=== PATIENT | male | born 1965 | race Caucasian/White ===

== ENCOUNTER 2016-06-04 18:46 | Inpatient (IN) | payer MEDICAID, MEDICARE ==
[~2016-06-04] VITALS: Ht 175.3 cm; Wt 69.9 kg
[2016-06-04 18:46] VITALS: BP 95/57; PULSE 91; RESP 22; TEMP 98.7; O2SAT 100
--- NOTE | 2016-06-04 18:46 | NUR ---
BROUGHT IN BY KATHARINE DURÁN, PLACED IN BED #1 AND TRIAGED. REPORT GIVEN TO KRISTINE
--- NOTE | 2016-06-04 19:07 | NUR ---
Introduced self, updated V/S, denies pain, presents with dried blood around mouth, here for vomting blood and blood in stool today .
[2016-06-04] MEDS ORDERED: FOLI-43 PO (19:11)
[2016-06-04] MEDS ORDERED: FURO40TA5 PO (19:11)
[2016-06-04] MEDS ORDERED: SPIR50TA26 PO (19:11)
[2016-06-04] MEDS ORDERED: LACT10SO66 PO (19:11)
[2016-06-04] MEDS ORDERED: RIFA550T5 PO (19:11)
[2016-06-04] MEDS ORDERED: ESOM40CA53 PO (19:11)
[2016-06-04] MEDS ORDERED: NS 1000 ML BAG IV ONE (19:15)
[2016-06-04] MEDS ORDERED: PANTOPRAZOLE SODIUM 80 MG in NS 100 ML IV ONE (19:15)
[2016-06-04] MEDS ORDERED: OCTREOTIDE ACETATE 100 MCG/ML AMP IVP ONE (19:15)
[2016-06-04] MEDS ORDERED: cefTRIAXone 1 GM in D5W 50 ML IV ONE (19:15)
[2016-06-04] MEDS ORDERED: PROCHLORPERAZINE EDISYLATE 10 MG/2 ML VIAL IVP ONE (19:15)
[2016-06-04] MEDS ORDERED: OCTREOTIDE ACETATE 50 MCG/ML AMP IVP ONE (19:15)
[2016-06-04] MEDS ORDERED: PANTOPRAZOLE SODIUM 40 MG/VIAL (PROTONIX) ONE (19:29)
[2016-06-04] MEDS ORDERED: cefTRIAXone 1 GM VIAL ONE ×2 (19:29→19:52)
[2016-06-04 19:39] LABS: BASOPHILS % (AUTO) 0.3 % (0.0-2.0); EOSINOPHILS # (AUTO) 0.1 K/uL (0.0-0.4); EOSINOPHILS % (AUTO) 0.5 % (0.0-4.0); HEMATOCRIT 24.2 % (36-54); HEMOGLOBIN 8.1 g/dL (14.0-18.0); LYMPHOCYTES % (AUTO) 9.2 % (20.5-51.5); MEAN CORPUSCULAR HEMOGLOBIN 31 pg (27-31); MEAN CORPUSCULAR HGB CONC 34 % (32-36); MEAN CORPUSCULAR VOLUME 93 fL (79.0-98.0); MONOCYTES # (AUTO) 0.5 K/uL (0.0-1.0); MONOCYTES % (AUTO) 4.8 % (1.7-9.3); NEUTROPHILS # (AUTO) 8.9 K/uL (1.8-7.7); NEUTROPHILS % (AUTO) 85.2 % (40.0-70.0); PLATELET COUNT (AUTO) 92 K/uL (130-430); RED BLOOD CELL COUNT(AUTO) 2.59 MIL/uL (4.2-6.2); RED CELL DISTRIBUTION WIDTH 16.4 % (9.0-15.0); WHITE BLOOD COUNT (AUTO) 10.5 K/uL (4.8-10.8)
[2016-06-04] MEDS ORDERED: NOREPINEPHRINE BITARTRATE 4 MG in NS 250 ML IV ONE (19:45)
[2016-06-04] MEDS ORDERED: NACL 0.9% 1,000 ML IV ONE ×4 (19:45→21:30)
[2016-06-04] MEDS ORDERED: NOREPINEPHRINE 4 MG/4 ML VIAL IV ONE (19:45)
[2016-06-04 19:46] LABS: CALCIUM 8.4 mg/dL (8.4-11.0); CREATININE 1.06 mg/dL (0.55-1.30); POTASSIUM 4.7 mmol/L (3.5-5.1)
--- NOTE | 2016-06-04 19:50 | NUR ---
MD Blair and MD Ross at bedside starting EJ, MD ross was able to get EJ to the Left Neck Area. Good blood return and flushing well. Will continue to monitor patient.
[2016-06-04 19:51] LABS: ALBUMIN 2.3 g/dL (3.4-4.8); TOTAL BILIRUBIN 4.7 mg/dL (0.0-1.0); TOTAL PROTEIN, SERUM 5.4 g/dL (6.4-8.3)
--- NOTE | 2016-06-04 19:51 | NUR ---
Asa mcgrath in [facility] - 06/04/16 at [address] STEPHENSON CALLED AND TALKED TO DR ODELL AND RECIEVED ORDERS.
[2016-06-04 20:01] LABS: INR 1.9 (0.80-1.20); PROTHROMBIN TIME 20.9 SECS (9.5-12.5)
--- NOTE | 2016-06-04 20:45 | NUR ---
BLOOD TRANSFUSION CONSENT SIGNED BY THE BROTHER.
--- NOTE | 2016-06-04 21:10 | NUR ---
MD Owens here in ER with patient at bedside, gave orders and will input STAT.
--- NOTE | 2016-06-04 21:15 | NUR ---
GIVE FFP 1st with Vitamin K and then give RPBC. Via MD Owens orders.
[2016-06-04] MEDS ORDERED: PHYTONADIONE 10 MG/ML AMP SUBCUT ONE (21:30)
--- NOTE | 2016-06-04 21:40 | NUR ---
Patient will be admitted to care of DR MCCONNELL. Admitted to ICU unit. Will go to room 2. Belongings list completed. Summary report printed. Report given to NIDHI CHANG.
--- NOTE | 2016-06-04 21:55 | NUR ---
ADMISSION NOTE Received patient from ER via gurney. Patient admitted with diagnosis of hypovolemic shock and GI bleed. Patient is awake, alert, oriented X 3. Patient oriented to hospital room, call light, toileting, pain management and safety-teach back done. Patient informed that Talia will be the night nurse and that their room number is ICU-2. Personal belongings checked and belongings list documented. Belongings will be sent home with brother who is at bedside. Call light within reach.
[2016-06-04 22:00] VITALS: BP 79/45; PULSE 100; PULSE 73; RESP 16; TEMP 98.4; O2SAT 100
--- NOTE | 2016-06-04 22:00 | NUR ---
Initial Assessment Pt transported to ICU-2 via gurney from ED. Pt is awake, A/O x3. SR on case monitor. Pt is on RA with O2 SAT of 99%. 18 gauge IV to left EJ infusing IVF and 22 gauge IV to right AC. No redness, swelling, or signs of infiltration observed. Dressings clean, dry, and intact. Pt is afebrile with temperature of 98.4 F. Pt hypotensive with BP of 79/45. Will start levophed and titrate per orders. Safety check performed. Call light within reach. Will continue to monitor.
--- NOTE | 2016-06-04 22:05 | NUR ---
Levophed Levophed initiated at 5 mcg/min. Will continue to monitor and will titrate per orders.
--- NOTE | 2016-06-04 22:10 | NUR ---
Bowel Movement Pt requested bed leonard stating that he needed to have a bowel movement. Bowel movement loose and dark red/brown. Will continue to monitor.
[2016-06-04 23:00] VITALS: BP 90/34; PULSE 100; RESP 13; O2SAT 100
--- NOTE | 2016-06-04 23:00 | NUR ---
Nausea/Vomiting Pt had episode of nausea/vomiting of 50 mL blood. HOB elevated, basin provided. RN remained with pt throughout episode. Mouth suctioned and oral care provided. Will continue to monitor pt.
--- NOTE | 2016-06-04 23:00 | NUR ---
ROUND Dr. Owens on unit to examine pt. Orders received. Will carry out.
[2016-06-04] MEDS ORDERED: ONDANSETRON HCL 4 MG/2 ML VIAL IVP PRN (23:15)
[2016-06-04] MEDS ORDERED: THIAMINE HCL 100 MG in NS 50 ML IV ONE (23:30)
--- NOTE | 2016-06-04 23:38 | NUR ---
BT INITIATION: Consent signed by brother of pt agreeing to administration of blood. Blood has been type and crossmatched. Blood sent from blood bank. Information on unit of blood checked against patient wristband at bedside by two nurses. All information matches. Patient and responsible libertarian informed of potential complications associated with blood transfusion. Informed of possible transfusion reaction symptoms. Aware of need to notify nurse at once of itching, shortness of breath, flushing, feeling of impending doom, or other symptoms not previously present. Vital signs taken within 5 minutes prior to initiation of transfusion. RN will remain with patient for first 15 minutes of transfusion at which time vital signs will be re-assessed. Addendum: 06/05/16 at 0509 by Dada Webb RN First unit of PRBCs initiated.
--- NOTE | 2016-06-04 23:51 | NUR ---
CALLED DR. LAY EXCHANGE FOR MORNING CONSULT. SPOKE TO ROBERTO. NURSE IS AWARE.
[2016-06-04] MEDS ORDERED: LEVOFLOXACIN 500 MG/D5W 100 ML IV ONE (23:57)
[2016-06-05] VITALS (35 sets, daily range): BP systolic 54–133; BP diastolic 30–76; PULSE 77–137; RESP 13–37; TEMP 97.4–98.7; O2SAT 19–100
[2016-06-05] MEDS ORDERED: LEVOFLOXACIN 500 MG/D5W 100 ML IV SCH
--- NOTE | 2016-06-05 00:15 | NUR ---
IV PLACEMENT: # 22 gauge angiocath placed to left AC. Use of asceptic technique. Opsite placed over site. Blood return noted. Flushed with 10 cc of normal saline. No evidence of infiltration noted. Patient tolerated well.
[2016-06-05] MEDS ORDERED: THIAMINE HCL 100 MG/ML VIAL ONE (00:29)
--- NOTE | 2016-06-05 00:41 | NUR ---
PRBCs Unit #1 Complete First unit of PRBCs completed. VSS. Patient denied any itching, shortness of breath, flushing, feeling of impending doom, or other symptoms not previously present during the transfusion.
[2016-06-05] MEDS ORDERED: PANTOPRAZOLE SODIUM 40 MG/VIAL (PROTONIX) ONE ×4 (00:42→06:12)
[2016-06-05] MEDS: D5NS 1,000 ML IV SCH ×2 (00:45→05:55)
--- NOTE | 2016-06-05 00:56 | NUR ---
BT INITIATION / FFP #1: Consent signed by brother of pt agreeing to administration of blood. Blood has been type and crossmatched. Blood sent from blood bank. Information on unit of blood checked against patient wristband at bedside by two nurses. All information matches. Patient and responsible republican informed of potential complications associated with blood transfusion. Informed of possible transfusion reaction symptoms. Aware of need to notify nurse at once of itching, shortness of breath, flushing, feeling of impending doom, or other symptoms not previously present. Vital signs taken within 5 minutes prior to initiation of transfusion. RN will remain with patient for first 15 minutes of transfusion at which time vital signs will be re-assessed.
[2016-06-05] MEDS ORDERED: NOREPINEPHRINE 4 MG/4 ML VIAL IV ONE ×4 (01:32→15:18)
--- NOTE | 2016-06-05 01:50 | NUR ---
FFP Unit #1 Complete First unit of FFP completed. VSS. Patient denied any itching, shortness of breath, flushing, feeling of impending doom, or other symptoms not previously present during the transfusion.
--- NOTE | 2016-06-05 02:00 | NUR ---
BT INITIATION / FFP #2: Consent signed by brother of pt agreeing to administration of blood. Blood has been type and crossmatched. Blood sent from blood bank. Information on unit of blood checked against patient wristband at bedside by two nurses. All information matches. Patient and responsible constitution party informed of potential complications associated with blood transfusion. Informed of possible transfusion reaction symptoms. Aware of need to notify nurse at once of itching, shortness of breath, flushing, feeling of impending doom, or other symptoms not previously present. Vital signs taken within 5 minutes prior to initiation of transfusion. RN will remain with patient for first 15 minutes of transfusion at which time vital signs will be re-assessed.
[2016-06-05] MEDS: PANTOPRAZOLE SODIUM 40 MG in NS 50 ML IV SCH ×4 (02:51→21:41)
[2016-06-05] MEDS: LORazepam 2 MG/ML VIAL IVP PRN ×2 (02:53→09:08)
--- NOTE | 2016-06-05 03:15 | NUR ---
FFP Unit #2 Complete Second unit of FFP completed. VSS. Patient denied any itching, shortness of breath, flushing, feeling of impending doom, or other symptoms not previously present during the transfusion.
--- NOTE | 2016-06-05 03:35 | NUR ---
BT INITIATION / Unit #2 PRBCs: Consent signed by brother of pt agreeing to administration of blood. Blood has been type and crossmatched. Blood sent from blood bank. Information on unit of blood checked against patient wristband at bedside by two nurses. All information matches. Patient and responsible constitution party informed of potential complications associated with blood transfusion. Informed of possible transfusion reaction symptoms. Aware of need to notify nurse at once of itching, shortness of breath, flushing, feeling of impending doom, or other symptoms not previously present. Vital signs taken within 5 minutes prior to initiation of transfusion. RN will remain with patient for first 15 minutes of transfusion at which time vital signs will be re-assessed.
--- NOTE | 2016-06-05 04:30 | NUR ---
O2 SATURATION Pt desatting. O2 SAT 86-88%. Pt placed on 4L NC. Will continue to monitor.
--- NOTE | 2016-06-05 04:50 | NUR ---
PRBCs Unit #2 Complete Second unit of PRBCs completed. VSS. Patient denied any itching, shortness of breath, flushing, feeling of impending doom, or other symptoms not previously present during the transfusion.
--- NOTE | 2016-06-05 06:30 | NUR ---
PENELOPE Owens. Sunita, Charge Nurse spoke with Dr. Owens re: pt not urinating throughout the night. Orders to bladder scan the pt. Will carry out.
[2016-06-05 06:34] LABS: MEAN CORPUSCULAR HEMOGLOBIN 31 pg (27-31); MEAN CORPUSCULAR HGB CONC 33 % (32-36); MEAN CORPUSCULAR VOLUME 93 fL (79.0-98.0); PLATELET COUNT (AUTO) 73 K/uL (130-430); RED CELL DISTRIBUTION WIDTH 18.6 % (9.0-15.0)
[2016-06-05 06:35] LABS: INR 1.8 (0.80-1.20); PROTHROMBIN TIME 20.1 SECS (9.5-12.5)
--- NOTE | 2016-06-05 06:40 | NUR ---
Incontinent Pt incontinent of stool. Pt is lethargic and requires maximum assistance during clean up. Loose, dark red/brown stool observed.
--- NOTE | 2016-06-05 06:45 | NUR ---
Hygiene / Oral care Pt cleansed with hygiene wipes (burgess package). Pt states that he is allergic to chlorahexidine, so did not use CHG wipes. Mouth swabbed x2 with mouth wash and suctioned. Linens changed. Pt tolerated activity.
[2016-06-05 06:52] LABS: ALBUMIN 1.5 g/dL (3.4-4.8); CREATININE 1.29 mg/dL (0.55-1.30); TOTAL BILIRUBIN 5.7 mg/dL (0.0-1.0); TOTAL PROTEIN, SERUM 4.2 g/dL (6.4-8.3)
[2016-06-05 06:59] LABS: POTASSIUM 7.2 mmol/L (3.5-5.1)
--- NOTE | 2016-06-05 07:00 | NUR ---
Bladder Scan Pt bladder scanned. Bladder scan yielded 495 mL urine in bladder.
--- NOTE | 2016-06-05 07:05 | NUR ---
Closing Note Pt lying in bed and is restless and confused. Calling out for staff to come into room. Pt on 4L O2 NC with O2 SAT of 100%. IVF @ 150 mL/hr, protonix @ 10 mL/hr, and levophed @ 20 mcg/min are infusing. SCDs present bilaterally to lower extremities. Pt remains NPO. Order for PICC to be placed, consent is signed by brother, Isaac, and is in pt chart. Will endorse care to day shift RN.
--- NOTE | 2016-06-05 07:20 | NUR ---
Report Report given to day shift RN. All care endorsed.
[2016-06-05 07:30] LABS: HEMATOCRIT 21.4 % (36-54); WHITE BLOOD COUNT (AUTO) 33.7 K/uL (4.8-10.8)
--- NOTE | 2016-06-05 07:56 | NUR ---
AM ASSESSMENT RECEIVED PT TACHYPNIC @33/MIN, ON O2-4L VIA NC @99%, CONFUSED, ATTEMPTING TO GET OUT OF BED. PT WITH CRITICAL LAB VALUES OF POTASSIUM 7.2, WBC-33.7, HGB-7.0, HCT-21.4. DR MCCONNELL INFORMED, LAB ORDERS RECEIVED TO REPEAT ALL. CN AWARE.
--- NOTE | 2016-06-05 08:09 | NUR ---
PT HAD SMALL BRIGHT RED BLOOD STOOL. PERICARE DONE, PT KEEPS BEING CONFUSED, ATTEMPTING TO GET OUT OF BED. CN AWARE OF NEEDED SUPPORT.
[2016-06-05] MEDS ORDERED: INSULIN REGULAR, HUMAN 100 UNITS/ML, 10 ML VIAL (novoLIN R) SUBCUT PRN (08:15)
--- NOTE | 2016-06-05 08:15 | NUR ---
LAB AT BEDSIDE TO REPEAT BLOOD DRAW FOR THIS MORNING.
--- NOTE | 2016-06-05 08:23 | NUR ---
PICC LINE NURSE UPDATED ON STATUS, LABS AND SIGNED CONSENT. STATES SHE WILL BE HERE BETWEEN 11 AND 12PM. CN AWARE.
--- NOTE | 2016-06-05 08:23 | NUR ---
GI CONSULT DR CHANEY CALLED BACK UPDATED ON CURRENT STATUS AND LAB VALUES, ORDERS RECEIVED.
[2016-06-05] MEDS ORDERED: GLUCOSE 15 GM GEL (in 37.5 GM TUBE) PO PRN ×2 (08:30)
[2016-06-05] MEDS ORDERED: DEXTROSE 50%-WATER 50 ML DISP.SYRIN IVP PRN (08:30)
--- NOTE | 2016-06-05 08:47 | NUR ---
Nutrition Update Az Scale 15 noted. Pt admitted for hypovolemic shock. Diet: NPO BMI: 22.9 kg/m2 RD to follow per nutrition care standards.
--- NOTE | 2016-06-05 09:40 | NUR ---
RT NOTE PT WAS FOUND TO BE TACHYPNEIC WITH RR 37 UNRESPONSIVE TO TO TOUCH. RN AT BEDSIDE, ER MD CALLED IN TO INTUBATE PT DUE TO CURRENT CONDITION OF UNRESPONSIVENESS. PT INTUBATED WITH A 7.5ETT 25CM AT LIP. BREATHSOUND AUSCULTATED BILATERALLY CLEAR. CHANGE IN COLOR ON CALORIMETRIC CO2 DETECTOR NOTICED, PT BAGGED WITH 100% O2 VIA AMBU BAG. PATIENT WILL BE MONITORED PER VENT PROTOCOLS
[2016-06-05 09:44] LABS: INR 2.3 (0.80-1.20); PROTHROMBIN TIME 25.5 SECS (9.5-12.5)
[2016-06-05 09:48] LABS: ANION GAP 19 (5-15); CALCIUM 7.1 mg/dL (8.4-11.0); CHLORIDE 116 mmol/L (98-107); CREATININE 1.49 mg/dL (0.55-1.30); GLUCOSE 177 mg/dL (70-99); POTASSIUM 5.5 mmol/L (3.5-5.1); SODIUM SERUM 142 mmol/L (136-145); UREA NITROGEN, BLOOD 21 mg/dL (8-21)
[2016-06-05 09:58] LABS: GFR AFRICAN AMERICAN 64 mL/min (>90)
[2016-06-05 09:59] LABS: BASOPHILS # (AUTO) 0.1 K/uL (0.0-0.2); BASOPHILS % (AUTO) 0.4 % (0.0-2.0); EOSINOPHILS % (AUTO) 0.1 % (0.0-4.0); LYMPHOCYTES # (AUTO) 1.1 K/uL (1.0-5.5); LYMPHOCYTES % (AUTO) 3.8 % (20.5-51.5); MEAN CORPUSCULAR HEMOGLOBIN 31 pg (27-31); MEAN CORPUSCULAR HGB CONC 34 % (32-36); MEAN CORPUSCULAR VOLUME 93 fL (79.0-98.0); MONOCYTES # (AUTO) 1.4 K/uL (0.0-1.0); MONOCYTES % (AUTO) 4.7 % (1.7-9.3); PLATELET COUNT (AUTO) 68 K/uL (130-430); RED CELL DISTRIBUTION WIDTH 18.6 % (9.0-15.0); WHITE BLOOD COUNT (AUTO) 29.6 K/uL (4.8-10.8)
[2016-06-05] MEDS ORDERED: OCTREOTIDE ACETATE 50 MCG/ML AMP IVP ONE (10:00)
[2016-06-05 10:05] LABS: BLOOD GAS PH 7.148 (7.350-7.450)
[2016-06-05 10:06] LABS: ABG TOTAL HEMOGLOBIN 5.7 G/dL (12.0-18.0); BLOOD GAS BASE EXCESS -22.1 mmol/L (-3.0-3.0); BLOOD O2Hb% 95.6 % (94.0-97.0)
[2016-06-05 10:07] LABS: ACETONE, SERUM NEGATIVE (NEGATIVE)
[2016-06-05 10:07] LABS: BLOOD GAS HHB 1.8 % (0.0-6.0)
[2016-06-05] MEDS: OCTREOTIDE ACETATE 1,250 MCG in NS 243.75 ML IV SCH (10:14)
[2016-06-05 10:23] LABS: RED BLOOD CELL COUNT(AUTO) 1.72 MIL/uL (4.2-6.2)
[2016-06-05 10:25] LABS: HEMATOCRIT 15.9 % (36-54); HEMOGLOBIN 5.3 g/dL (14.0-18.0)
[2016-06-05] MEDS: SODIUM BICARBONATE 8.4% JECT 150 MEQ in D5W 1,000 ML IV SCH ×2 (10:29→21:40)
[2016-06-05] MEDS ORDERED: NACL 0.9% 1,000 ML IV ONE (10:30)
--- NOTE | 2016-06-05 10:44 | NUR ---
consult for dr. burnette called spoke to melia dialed [phone] sultana called spoke garret dialed [phone]
[2016-06-05 11:02] LABS: ATYPICAL LYMPHOCYTES % 0 % (0-0); BAND % (MANUAL) 23 % (0-6); BASOPHILS % (MANUAL) 0 % (0-2); EOSINOPHILS % (MANUAL) 0 % (0-7); LYMPHOCYTES % (MANUAL) 3 % (20-46); MONOCYTES % (MANUAL) 4 % (0-11)
[2016-06-05 11:10] LABS: BLOOD GAS PH 6.892 (7.350-7.450)
[2016-06-05 11:11] LABS: ABG TOTAL HEMOGLOBIN 5.9 G/dL (12.0-18.0); BLOOD GAS BASE EXCESS -24.2 mmol/L (-3.0-3.0); BLOOD GAS COHb% 0.8 % (0.5-1.5); BLOOD GAS HHB 5.3 % (0.0-6.0); BLOOD O2Hb% 92.3 % (94.0-97.0)
[2016-06-05] MEDS ORDERED: SODIUM BICARBONATE 8.4% JECT 50 MEQ/50 ML SYRINGE IVP ONE ×5 (11:15→19:45)
[2016-06-05] MEDS ORDERED: PIPERACILLIN/TAZO 2.25G/DEX-IS 50 ML IV SCH (12:00)
[2016-06-05] MEDS ORDERED: SODIUM BICARBONATE 8.4% JECT 50 MEQ/50 ML SYRINGE ONE ×3 (12:07→15:59)
[2016-06-05] MEDS ORDERED: DOPamine PREMIX 250 ML IV ONE (12:18)
--- NOTE | 2016-06-05 12:22 | NUR ---
Cushion Stuffer Note ICU assessment. Patient was admitted with a complaint of abdominal pain with a diagnosis of hypovolemic shock and GI bleed. Patient has a history of alcoholic liver cirrhosis and is on the transplant list. Patient was unresponsive this morning and intubated. MANAGER SIX SIGMA was unable to meet with patient due to condition. MANAGER SIX SIGMA met with patient's brother, Isaac Knowles, in the ICU waiting room. Patient's brother was anxious and requested to visit patient. MANAGER SIX SIGMA explained that patient's nurse indicated he could go in in five minutes. Isaac called patient's parents to come to visit. Patient lives with his two adult sons, with parents and brother nearby. Isaac did not wish to discuss further nor have MANAGER SIX SIGMA wait with him. Cushion Stuffer will remain available.
[2016-06-05 12:39] LABS: ABG TOTAL HEMOGLOBIN 5.7 G/dL (12.0-18.0); BLOOD GAS BASE EXCESS -15.4 mmol/L (-3.0-3.0); BLOOD GAS PH 7.118 (7.350-7.450)
[2016-06-05 12:40] LABS: BLOOD GAS COHb% 1.1 % (0.5-1.5); BLOOD GAS HHB 3.1 % (0.0-6.0); BLOOD O2Hb% 94.2 % (94.0-97.0)
--- NOTE | 2016-06-05 12:44 | NUR ---
ECH AT BEDSIDE WITH DR ALFRED IN ROOM Addendum: 06/05/16 at 1254 by [facility] Three environmental health technician ECHO
--- NOTE | 2016-06-05 12:58 | NUR ---
FAMILY AT BEDSIDE, UPDATED ON CRITICAL STATUS AND PLAN OF CARE.
[2016-06-05] MEDS ORDERED: MIDAZOLAM HCL 5 MG/5 ML VIAL ONE ×2 (13:20)
[2016-06-05] MEDS ORDERED: fentaNYL CITRATE/PF 100 MCG/2 ML AMP ONE (13:21)
[2016-06-05] MEDS ORDERED: VECURONIUM BROMIDE 10 MG/VIAL (NORCURON) IV ONE (13:31)
[2016-06-05] MEDS ORDERED: ROCURONIUM BROMIDE 10 MG/ML (ZEMURON) IV ONE (13:31)
[2016-06-05] MEDS ORDERED: ETOMIDATE 20 MG/ 10 ML VIAL (AMIDATE) IVP ONE (13:31)
--- NOTE | 2016-06-05 13:56 | NUR ---
MORE FAMILY AT BEDSIDE, PT IN CRITICAL CONDITION, FAMILY UPDATED.
[2016-06-05 14:07] LABS: CALCIUM 7.3 mg/dL (8.4-11.0); CHLORIDE 116 mmol/L (98-107); CREATININE 1.74 mg/dL (0.55-1.30); GLUCOSE 160 mg/dL (70-99); UREA NITROGEN, BLOOD 22 mg/dL (8-21)
[2016-06-05 14:14] LABS: ANION GAP 18 (5-15); SODIUM SERUM 142 mmol/L (136-145)
[2016-06-05] MEDS: metroNIDAZOLE 500 mg/NS 100 ML IV SCH ×2 (14:22→22:31)
[2016-06-05 14:26] LABS: ALCOHOL, BLOOD < 3 mg/dL (<10); GFR AFRICAN AMERICAN 53 mL/min (>90)
[2016-06-05 14:27] LABS: POTASSIUM 6.3 mmol/L (3.5-5.1)
--- NOTE | 2016-06-05 17:19 | NUR ---
ORAL BLEEDING SUCTIONED MOD AMOUNTS OF BRIGHT RED BLOOD DRIPPING FROM ORAL MUCOSA. PLATELETS AND BLOOD TRANSFUSION ONGOING. DR MCCONNELL AND DR CHANEY AWARE.
--- NOTE | 2016-06-05 17:27 | NUR ---
DR MCCONNELL INFORMED THAT PT LOST 2 PERIPHERAL LINES, PT NEEDS CENTRAL LINE ACCESS.
[2016-06-05 18:21] LABS: ABG TOTAL HEMOGLOBIN 8.9 G/dL (12.0-18.0); BLOOD GAS BASE EXCESS -11.9 mmol/L (-3.0-3.0); BLOOD GAS PH 7.325 (7.350-7.450)
[2016-06-05 18:22] LABS: BLOOD O2Hb% 93.1 % (94.0-97.0)
[2016-06-05 18:23] LABS: BLOOD GAS COHb% 0.3 % (0.5-1.5); BLOOD GAS HHB 5.9 % (0.0-6.0)
[2016-06-05 18:27] LABS: BLOOD GAS PH 7.152 (7.350-7.450)
[2016-06-05 18:28] LABS: ABG TOTAL HEMOGLOBIN 7.5 G/dL (12.0-18.0); BLOOD GAS COHb% 0.8 % (0.5-1.5); BLOOD GAS HHB 6.2 % (0.0-6.0); BLOOD O2Hb% 91.9 % (94.0-97.0)
--- NOTE | 2016-06-05 18:39 | NUR ---
DR ODELL IN ROOM FOR CENTRAL CATH PLACEMENT
[2016-06-05 18:48] LABS: MEAN CORPUSCULAR VOLUME 89 fL (79.0-98.0)
[2016-06-05 18:51] LABS: HEMATOCRIT 23.1 % (36-54); MEAN CORPUSCULAR HEMOGLOBIN 31 pg (27-31); MEAN CORPUSCULAR HGB CONC 35 % (32-36); RED CELL DISTRIBUTION WIDTH 14.4 % (9.0-15.0); WHITE BLOOD COUNT (AUTO) 22.1 K/uL (4.8-10.8)
[2016-06-05 19:06] LABS: PLATELET COUNT (AUTO) 30 K/uL (130-430)
--- NOTE | 2016-06-05 19:10 | NUR ---
Platelets Critical Value Lab called with platelets at 30. 2 units of FFP ready to be transfused in 20 minutes.
--- NOTE | 2016-06-05 19:24 | NUR ---
REPORT GIVEN TO RONNIE CHANG, UPDATED ON CRITICAL CONDITION, PENDING FFP ADMINISTRATION. HIRAM CN IN ROOM TO INITIATE CENTRAL LINE. OK PER DR ODELL TO USE INFORMED.
--- NOTE | 2016-06-05 19:29 | NUR ---
Blood Bank Called blood bank and asked when the 2 bags of FFP will be ready. Blood banker mason said to give her 20 minutes to prepare it.
--- NOTE | 2016-06-05 19:35 | NUR ---
MD Call Spoke with Dr. Umanzor regarding pt's current condition and recent lab values. Informed of new orders. Will follow through.
--- NOTE | 2016-06-05 19:40 | NUR ---
MD Arenas Spoke with Dr. Paz and read him 1807 ABG results and updated him on pt's current condition. Orders received, will follow through.
[2016-06-05 19:44] LABS: ATYPICAL LYMPHOCYTES % 0 % (0-0); BAND % (MANUAL) 8 % (0-6); BASOPHILS % (MANUAL) 0 % (0-2); EOSINOPHILS % (MANUAL) 0 % (0-7); LYMPHOCYTES % (MANUAL) 9 % (20-46); MONOCYTES % (MANUAL) 3 % (0-11)
--- NOTE | 2016-06-05 19:54 | NUR ---
MD Call Spoke with Dr. Owens. Updated him on pt's current condition and lab results. New orders received, will follow through.
[2016-06-05] MEDS: DOPamine PREMIX 250 ML IV PRN ×2 (20:00→23:50)
--- NOTE | 2016-06-05 20:00 | NUR ---
AM Shift Assessment Bed at the lowest level, bed brakes locked, side rails x3, with the call light within reach. Unable to follow simple commands and make needs known. Bilateral eyes are yellow. IV sites show no s/sx of infiltration or infection. Protonix Drip @ 10 ml/hour, Levophed @ 30 mcg/min, Dopamine @ 20 mcg/kg/min, Sandostatin @ 50 mcg/hour. Fall, safety, and aspiration precautions in place. Will continue to monitor pt.
--- NOTE | 2016-06-05 20:05 | NUR ---
Blood Transfusion: FFP 1 unit Consent signed agreeing to administration of blood. Blood has been type and crossmatched. Blood sent from blood bank. Information on unit of blood checked against patient wristband at bedside by two nurses. All information matches. Patient or responsible republican informed of potential complications associated with blood transfusion. Informed of possible transfusion reaction symptoms. Aware of need to notify nurse at once of itching, shortness of breath, flushing, feeling of impending doom, or other symptoms not previously present. Vital signs taken within 5 minutes prior to initiation of transfusion. RN will remain with patient for first 15 minutes of transfusion at which time vital signs will be re-assessed. 1 unit of FFP started.
[2016-06-05] MEDS ORDERED: PHENYLEPHRINE HCL 10 MG/ML VIAL (NEOSYNEPHRINE) ONE ×3 (20:15→23:44)
--- NOTE | 2016-06-05 20:15 | NUR ---
REFERENCE LIBRARY ASSISTANT CALLED IN REQUESTED PER FAMILY
--- NOTE | 2016-06-05 20:39 | NUR ---
1 unit of FFP Finished 1 unit of FFP finished. No s/sx of adverse reactions. Pt appears to have tolerated well.
--- NOTE | 2016-06-05 20:44 | NUR ---
MD Arenas Spoke with Dr. Umanzor and informed her of pt's current condition. informed me of new orders that she entered in. Will carry out.
--- NOTE | 2016-06-05 20:45 | NUR ---
Hooker Machine Tender, Father Tank, at bedside with family.
--- NOTE | 2016-06-05 20:50 | NUR ---
Type and Screen being drawn at the bedside from the [place] triple lumen central line by BERNARDO Swann.
--- NOTE | 2016-06-05 20:55 | NUR ---
2nd unit of FFP start Information on unit of blood checked against patient wristband at bedside by two nurses. All information matches. Vital signs taken within 5 minutes prior to initiation of transfusion. RN will remain with patient for first 15 minutes of transfusion at which time vital signs will be re-assessed. 2nd unit of FFP started.
[2016-06-05] MEDS: NOREPINEPHRINE BITARTRATE 8 MG in NS 242 ML IV PRN (20:56)
[2016-06-05] MEDS ORDERED: cefTRIAXone 1 GM IVPB PREMIX 50 ML IV SCH (21:00)
--- NOTE | 2016-06-05 21:09 | NUR ---
Unable to do Fingerstick Blood Glucose Testing at this time, QC test failed. telegraph repeater technician, Eunice, will find another glucoscan machine.
--- NOTE | 2016-06-05 21:28 | NUR ---
2nd unit of FFP Finished 2nd unit of FFP finished. No s/sx of adverse reactions. Pt appears to have tolerated well.
--- NOTE | 2016-06-05 22:22 | NUR ---
1st unit of PRBC start Information on unit of blood checked against patient wristband at bedside by two nurses. All information matches. Vital signs taken within 5 minutes prior to initiation of transfusion. RN will remain with patient for first 15 minutes of transfusion at which time vital signs will be re-assessed. 1st unit of PRBC's started.
[2016-06-05] MEDS: PHENYLEPHRINE HCL 30 MG in NS 247 ML IV PRN ×2 (22:49→23:51)
--- NOTE | 2016-06-05 22:54 | NUR ---
Blood Product Information Spoke with blood bank quality control lab tech and she informed me that units of FFP and 1 unit of platelets are not available at this hospital right now and they ordered products and are waiting for it to arrive. Will call for updates on when blood products will arrive. 1 unit of PRBC still infusing at this time.
--- NOTE | 2016-06-05 23:10 | NUR ---
MD Call Out Call out to Dr. Owens to updated him on pt's current condition. Will wait for call back.
--- NOTE | 2016-06-05 23:12 | NUR ---
Code Status Nano, Charge Nurse, spoke with pt's brother, Isaac, regarding code status. Explained pt's current condition to brother. Isaac complied to having everything done. States, "We wanna keep trying. If it comes to that, do everything you can, including compressions." Dr. Blair and Hue, ICU/ER Director, explained pt's condition to Isaac and family as well.
--- NOTE | 2016-06-05 23:45 | NUR ---
MD Arenas Spoke with Dr. Owens and updated him on pt's current condition. Informed him on latest Hemoglobin and our progress on what blood products have been given and what is infusing at this time. No new orders received.
[2016-06-06] VITALS (36 sets, daily range): BP systolic 62–105; BP diastolic 29–50; PULSE 116–135; RESP 14–34; TEMP 97.9–98.2; O2SAT 77–100; Ht 175.3 cm; Wt 69.9 kg
--- NOTE | 2016-06-06 00:21 | NUR ---
1st unit of PRBC Finished 1st unit of PRBC's finished. No s/sx of adverse reactions observed.
--- NOTE | 2016-06-06 00:44 | NUR ---
3rd unit of FFP start Information on unit of blood checked against patient wristband at bedside by two nurses. All information matches. Vital signs taken within 5 minutes prior to initiation of transfusion. RN will remain with patient for first 15 minutes of transfusion at which time vital signs will be re-assessed. 3rd unit of FFP started.
[2016-06-06] MEDS: NOREPINEPHRINE BITARTRATE 8 MG in NS 242 ML IV PRN ×5 (01:19→23:58)
--- NOTE | 2016-06-06 01:42 | NUR ---
2nd unit of PRBC Finished 2nd unit of PRBC's finished. No s/sx of adverse reactions observed. Addendum: 06/06/16 at 0205 by Vanessa Shaw RN 3rd unit of FFP FINISHED, not 2nd unit of PRBCs.
--- NOTE | 2016-06-06 02:00 | NUR ---
4th unit of FFP start Information on unit of blood checked against patient wristband at bedside by two nurses. All information matches. Vital signs taken within 5 minutes prior to initiation of transfusion. RN will remain with patient for first 15 minutes of transfusion at which time vital signs will be re-assessed. 4th unit of FFP started.
[2016-06-06] MEDS ORDERED: PHENYLEPHRINE HCL 10 MG/ML VIAL (NEOSYNEPHRINE) ONE ×3 (02:18→05:20)
[2016-06-06] MEDS: PHENYLEPHRINE HCL 30 MG in NS 247 ML IV PRN ×3 (02:27→08:13)
--- NOTE | 2016-06-06 02:48 | NUR ---
4th unit of FFP Finished 4th unit of FFP finished. No s/sx of adverse reactions.
--- NOTE | 2016-06-06 03:33 | NUR ---
1 unit of Platelets Start Information on unit of blood checked against patient wristband at bedside by two nurses. All information matches. Vital signs taken within 5 minutes prior to initiation of transfusion. RN will remain with patient for first 15 minutes of transfusion at which time vital signs will be re-assessed. 1 unit of platelets initiated at this time.
[2016-06-06] MEDS: DOPamine PREMIX 250 ML IV PRN ×6 (03:37→23:23)
--- NOTE | 2016-06-06 04:25 | NUR ---
1 unit of Platelets Finished 1 unit of platelets finished. No s/sx of adverse reactions.
--- NOTE | 2016-06-06 05:15 | NUR ---
2nd unit of PRBC start Information on unit of blood checked against patient wristband at bedside by two nurses. All information matches. Vital signs taken within 5 minutes prior to initiation of transfusion. RN will remain with patient for first 15 minutes of transfusion at which time vital signs will be re-assessed. 2nd unit of PRBC's started.
[2016-06-06] MEDS: metroNIDAZOLE 500 mg/NS 100 ML IV SCH ×2 (05:23→14:10)
[2016-06-06] MEDS: PANTOPRAZOLE SODIUM 40 MG in NS 50 ML IV SCH ×5 (05:23→23:58)
--- NOTE | 2016-06-06 06:01 | NUR ---
IV Discontinuation #18 gauge LIJ peripheral line discontinued. Gauze placed to site, secured with paper tape.
[2016-06-06 06:06] LABS: HEPATITIS B SURFACE AG Negative (Negative); HEPATITIS C VIRUS AB 0.1 s/co ratio (0.0-0.9)
--- NOTE | 2016-06-06 06:19 | NUR ---
2nd unit of PRBC Finished 2nd unit of PRBC's finished. No s/sx of adverse reactions observed.
--- NOTE | 2016-06-06 06:54 | NUR ---
Family Discussion Spoke with pt's brother, Isaac. He stated pt's children were on vacation in [place]. He stated it was pt's wishes not to tell the children he was in the hospital so they can enjoy their vacation. Stated children would return from their trip this Saturday. Isaac and family are still deciding whether to tell children he is in the hospital or not.
--- NOTE | 2016-06-06 07:05 | NUR ---
Lab Draw Called lab to do AM lab draws at this time. It has been 1 hour since last blood product has been infused. cardiac cath technologist stated, "Alright, we'll be there."
--- NOTE | 2016-06-06 07:14 | NUR ---
Report Endorsed all care to BERNARDO Sesay, via SBAR method. All questions answered. Frequent monitoring made throughout the shift. Fall, safety, and aspiration precautions in place.
[2016-06-06 07:30] LABS: BILIRUBIN,URINE NEGATIVE (NEGATIVE); BLOOD, URINE 1+ (NEGATIVE); CLARITY/URINE HAZY (CLEAR); COLOR,URINE YELLOW (YELLOW); GLUCOSE,URINE NEGATIVE (NEGATIVE); KETONES,URINE TRACE (NEGATIVE); LEUKOCYTE ESTERASE ,URINE NEGATIVE (NEGATIVE); NITRITE, URINE NEGATIVE (NEGATIVE); PH,URINE 5.5 (5.0-8.0); PROTEIN URINE 1+ (NEGATIVE); UROBILINOGEN,URINE 0.2 (0.2-1.0)
[2016-06-06 07:44] LABS: BACTERIA,URINE FEW /HPF (None Seen); WBC,URINE 0-3 /HPF (0-3)
[2016-06-06] MEDS ORDERED: SODIUM BICARBONATE 8.4% JECT 50 MEQ/50 ML SYRINGE IVP ONE ×3 (07:45→17:15)
--- NOTE | 2016-06-06 07:50 | NUR ---
RT NOTES FIO2 to 100% per Dr Umanzor's order
--- NOTE | 2016-06-06 07:50 | NUR ---
Dr Umanzor called re ABG results. Orders received FIO2 to 100% Brother at bedside updated of pt condition. Questions answered
[2016-06-06 07:51] LABS: BARBITURATE, URINE NEGATIVE (NEG <=200); BENZODIAZEPINE, URINE POSITIVE (NEG <=150); CANNABINOID, URINE NEGATIVE (NEG <=50); COCAINE, URINE NEGATIVE (NEG <=150); METHAMPHETAMINES SCREEN,URINE NEGATIVE (NEG <=500); OPIATE, URINE NEGATIVE (NEG <=100); PHENCYCLIDINE SCREEN,URINE NEGATIVE (NEG <=25); UR TRICYCLIC ANTIDEPRESSANTS NEGATIVE (NEG <=300); URINE AMPHETAMINE NEGATIVE (NEG <=500); URINE METHADONE NEGATIVE (NEG <=200); URINE OXYCODONE SCREEN NEGATIVE (NEG <=100); URINE PROPOXYPHENE SCREEN NEGATIVE (NEG <=300)
--- NOTE | 2016-06-06 08:00 | NUR ---
Pt in ICU # 2. Orally intubated. PNR4=080% AC=30 GO=743. Lungs diminished with fine crackles. Sx orally= Bloody secretions. Oral care done. Pt oozing bloody oral secretions small to mod amt.POX=96% service bar cashier= ST,no ectopy. Trace gen edema. Skin pale and cool to touch ON Levophed at 30mcg/min, Dopamine 20 mcg/Kg/min,Neosynephrine 180 mcg/min. IVF 150 ml hour. Cont hypotensive, Cont with close monitoring Abdomen obese , distended, silent. On Sandostatin at 50mcg/hour, Protonix 8 mg/hour. Platt cath in place, no urine output noted.
[2016-06-06] MEDS: SODIUM BICARBONATE 8.4% JECT 150 MEQ in D5W 1,000 ML IV SCH ×2 (08:03→16:23)
[2016-06-06] MEDS: OCTREOTIDE ACETATE 1,250 MCG in NS 243.75 ML IV SCH (08:03)
--- NOTE | 2016-06-06 08:05 | NUR ---
Sodium Bicarb 2 amps given IVP
[2016-06-06 08:14] LABS: MEAN CORPUSCULAR HEMOGLOBIN 29 pg (27-31); MEAN CORPUSCULAR HGB CONC 33 % (32-36); MEAN CORPUSCULAR VOLUME 88 fL (79.0-98.0); PLATELET COUNT (AUTO) 62 K/uL (130-430); RED BLOOD CELL COUNT(AUTO) 2.12 MIL/uL (4.2-6.2); RED CELL DISTRIBUTION WIDTH 14.2 % (9.0-15.0); WHITE BLOOD COUNT (AUTO) 21.4 K/uL (4.8-10.8)
--- NOTE | 2016-06-06 08:17 | NUR ---
Lab calls Hb=6.2, Hct=18.8 Dr Roman cannon
[2016-06-06 08:18] LABS: HEMOGLOBIN 6.2 g/dL (14.0-18.0)
[2016-06-06 08:19] LABS: HEMATOCRIT 18.8 % (36-54)
--- NOTE | 2016-06-06 08:30 | NUR ---
Dr Owens returns call. Orders received for 2 UPC and 2 FFP
[2016-06-06 08:33] LABS: PROTHROMBIN TIME 21.8 SECS (9.5-12.5)
--- NOTE | 2016-06-06 08:36 | NUR ---
Sodium bicarb 2 amps ivp given
[2016-06-06 08:44] LABS: BLOOD GAS BASE EXCESS -16.9 mmol/L (-3.0-3.0); BLOOD GAS PH 7.173 (7.350-7.450)
[2016-06-06 08:45] LABS: BLOOD GAS COHb% 0.3 % (0.5-1.5); BLOOD GAS HHB 25.4 % (0.0-6.0); BLOOD O2Hb% 72.9 % (94.0-97.0)
--- NOTE | 2016-06-06 09:00 | NUR ---
Unable to turn patient side to side due to critical condition
[2016-06-06 09:10] LABS: ATYPICAL LYMPHOCYTES % 0 % (0-0); BAND % (MANUAL) 23 % (0-6); BASOPHILS % (MANUAL) 0 % (0-2); EOSINOPHILS % (MANUAL) 0 % (0-7); LYMPHOCYTES % (MANUAL) 15 % (20-46); MONOCYTES % (MANUAL) 14 % (0-11)
--- NOTE | 2016-06-06 09:15 | NUR ---
Pt seen by Dr Umanzor and Dr Rodriguez
[2016-06-06] MEDS ORDERED: SODIUM BICARBONATE 8.4% VIAL 50 MEQ/50 ML VIAL INJ ONE ×3 (09:30→12:15)
--- NOTE | 2016-06-06 09:30 | NUR ---
Dr Umanzor updates patients brother
--- NOTE | 2016-06-06 09:36 | NUR ---
One unit PC # [id number] started Pt to receive total 4 units PC and 2 units FFP today
[2016-06-06 09:38] LABS: POTASSIUM 4.9 mmol/L (3.5-5.1)
[2016-06-06 09:39] LABS: CREATININE 3.6 mg/dL (0.55-1.30); TOTAL BILIRUBIN 4.8 mg/dL (0.0-1.0)
[2016-06-06 09:40] LABS: ALBUMIN 1.7 g/dL (3.4-4.8); THYROID STIMULATING HORMONE 0.54 uIu/mL (0.34-4.82); TOTAL PROTEIN, SERUM 3.4 g/dL (6.4-8.3)
[2016-06-06 09:43] LABS: CALCIUM 6.8 mg/dL (8.4-11.0)
--- NOTE | 2016-06-06 09:50 | NUR ---
Parents at bedside, Updated, emot support provided
--- NOTE | 2016-06-06 10:00 | NUR ---
2 amps Na Bicarb given Family at bedside Cont with frequent oral suctioning for small amt oozing of bloody secretions
[2016-06-06 10:10] LABS: ABG TOTAL HEMOGLOBIN 6.1 G/dL (12.0-18.0); BLOOD GAS BASE EXCESS -12.3 mmol/L (-3.0-3.0); BLOOD GAS COHb% 0.1 % (0.5-1.5); BLOOD GAS HHB 9.9 % (0.0-6.0); BLOOD GAS PH 7.258 (7.350-7.450); BLOOD O2Hb% 88.8 % (94.0-97.0)
--- NOTE | 2016-06-06 11:20 | NUR ---
One unit started # [id number]
[2016-06-06] MEDS ORDERED: SODIUM BICARBONATE 8.4% JECT 50 MEQ/50 ML SYRINGE ONE (12:01)
[2016-06-06] MEDS ORDERED: DEXTROSE 50% JECT 50 ML DISP.SYRIN ONE (12:02)
--- NOTE | 2016-06-06 12:10 | NUR ---
Blood sugar=68 One amp D 50 given IVP @ amps Bicarb given for total of 8 as orederd today Blood infusing without ill effects. Family visits frequently. Updates given, questions answered
--- NOTE | 2016-06-06 13:00 | NUR ---
Still oozing bloody secretions from oral cavity. Slightly less than in AM
--- NOTE | 2016-06-06 13:10 | NUR ---
One unit FFP started #[id number]
--- NOTE | 2016-06-06 14:00 | NUR ---
Family continues to visit
--- NOTE | 2016-06-06 14:30 | NUR ---
Seen by Dr Watt, Updates family at [facility]. Questions answered
--- NOTE | 2016-06-06 15:10 | NUR ---
[facility] # [id number]
[2016-06-06] MEDS ORDERED: FUROSEMIDE 40 MG/4 ML VIAL IVP ONE (15:30)
--- NOTE | 2016-06-06 15:30 | NUR ---
Dr Owens called with update. Orders received
--- NOTE | 2016-06-06 15:40 | NUR ---
CALLED IN CONSULT TO DR. VITALE AND SPOKE TO TOSHIA FROM DOCTORS OFFICE...
--- NOTE | 2016-06-06 15:45 | NUR ---
Lasix 80 mg IVP given
[2016-06-06] MEDS: NS IV PRN ×2 (16:03→21:27)
[2016-06-06] MEDS: PHENYLEPHRINE HCL IV PRN ×2 (16:03→21:27)
--- NOTE | 2016-06-06 16:25 | NUR ---
[facility] Liver Transplant unit calls. Tere Witt.Liver construction coordinator,[phone], FAX [phone] Updated of pt condition [facility] Liver production department supervisor pager [phone] , for after hours questions
--- NOTE | 2016-06-06 16:35 | NUR ---
Dr Umanzor calls in ,Updated
[2016-06-06 16:54] LABS: BLOOD GAS PH 7.364 (7.350-7.450)
[2016-06-06 16:55] LABS: ABG TOTAL HEMOGLOBIN 8.2 G/dL (12.0-18.0); BLOOD GAS BASE EXCESS -9.2 mmol/L (-3.0-3.0); BLOOD GAS COHb% 0.3 % (0.5-1.5); BLOOD GAS HHB 15.9 % (0.0-6.0); BLOOD O2Hb% 83.2 % (94.0-97.0)
--- NOTE | 2016-06-06 17:05 | NUR ---
One unit started # [id number]
--- NOTE | 2016-06-06 17:20 | NUR ---
Dr Owens at bedside , examines patient
[2016-06-06] MEDS ORDERED: PIPERACILLIN/TAZO 2.25G/DEX-IS 50 ML IV SCH (18:00)
[2016-06-06] MEDS ORDERED: PIPERACILLIN/TAZO 3.375/DEX-IS 50 ML IV SCH (18:00)
--- NOTE | 2016-06-06 18:00 | NUR ---
One amp Na Bicarb given
--- NOTE | 2016-06-06 18:20 | NUR ---
Seen by Dr Wheeler
--- NOTE | 2016-06-06 18:30 | NUR ---
One unit started # [id number]
--- NOTE | 2016-06-06 18:37 | NUR ---
Family and friends continue to visit Patients condition continues to be critical. Continue with current level of care. quality assurance monitor chassis = ST. Vent settings continue unchanged Continues on Levophed, Dopamine and Neosynephrine drips as before. Continues on Protonix and Sandostatin drips as before Total 4 units packed red cells today, 2 units FFP. Continues to ooze moderate and sometimes large amt bloody secretions from oral cavity. No BM noted No urine output noted. Lasix 80 mg was given earlier
[2016-06-06] MEDS ORDERED: ALBUMIN HUMAN 25% 50 ML IV SCH (18:45)
[2016-06-06] MEDS ORDERED: NOREPINEPHRINE 4 MG/4 ML VIAL IV ONE (18:56)
[2016-06-06] MEDS: DEXTROSE 50%-WATER 50 ML DISP.SYRIN IVP PRN ×2 (19:09→22:42)
--- NOTE | 2016-06-06 19:12 | NUR ---
BS=53mg/dl on Accucheck Medicated with D50 one amp IVP Cont with close blood sugar monitoring
--- NOTE | 2016-06-06 19:15 | NUR ---
Accucheck BS=53 One amp D 50 given IVP. Cont with close blood sugar monitoring
--- NOTE | 2016-06-06 19:20 | NUR ---
Q 15 min vital sign print out placed in chart
--- NOTE | 2016-06-06 20:00 | NUR ---
ASSESSMENT Pt obtunded, movement noted only with noxious stimuli. Pt orally intubated, tolerating current vent settings. Bloody drainage noted from nostrils and mouth. Right IJ noted no swelling or redness noted @ site. Right upper arm PICC line present, no redness or swelling noted @ that site. Right forearm with 22ga, no redness or swelling noted @ site. Platt draining scant amount of nava urine. Skin intact, generalized edema present. No wounds noted.
[2016-06-06] MEDS ORDERED: LACTOBACILLUS RHAMNOSUS GG 1 CAP CAPSULE PO SCH (21:00)
--- NOTE | 2016-06-06 21:21 | NUR ---
URINE Small amount of urine obtained for urine osmolality, eosinophil, random creatinine. Specimen sent to lab.
--- NOTE | 2016-06-06 21:45 | NUR ---
BLOOD SUGAR 58 15 min recheck after intervention 134.
[2016-06-06 22:03] LABS: HEMATOCRIT 25.9 % (36-54); HEMOGLOBIN 8.8 g/dL (14.0-18.0); MEAN CORPUSCULAR HEMOGLOBIN 30 pg (27-31); MEAN CORPUSCULAR HGB CONC 34 % (32-36); MEAN CORPUSCULAR VOLUME 88 fL (79.0-98.0); RED BLOOD CELL COUNT(AUTO) 2.94 MIL/uL (4.2-6.2)
[2016-06-06 22:24] LABS: INR 2.6 (0.80-1.20); PROTHROMBIN TIME 29.3 SECS (9.5-12.5)
[2016-06-06 22:50] LABS: PLATELET COUNT (AUTO) 26 K/uL (130-430)
[2016-06-07] MEDS ORDERED: CALCIUM CHLORIDE 1 GM in NS 100 ML IV ONE ×2
--- NOTE | 2016-06-07 | NUR ---
[facility] Unit of [facility] started @ 2345, blood transfusion stopped @ 0000, due to change in pt condition. Pt went into V-fib. Pt bleeding out.
--- NOTE | 2016-06-07 | NUR ---
CODE BLUE Pt went into ventricular fibulation, code was called see code sheet.
--- NOTE | 2016-06-07 00:50 | NUR ---
RECORD OF Pamela notified @ 0040 [facility] gave #[id number], Dr Owens was notified as well as the consulting MD's. [employer] was called a total of 9 times ( 3 different numbers used , , ) all lines with busy signal. [facility] was also notified (per family).
--- NOTE | 2016-06-07 03:45 | NUR ---
[employer] Mortuary rep here to collect body. No belongings present.
== END 2016-06-07 00:06 | disposition expired | DRG 710 ==
LOC: SED 18:46 → SIC 20:45
PROVIDERS: ADMIT Internal Medicine; ATTEND Internal Medicine
PROC: 30233N1 Transfusion of Nonautologous Red Blood Cells into Peripheral Vein, Percutaneous Approach (ICD-10-PCS; 2016-06-04)
PROC: 5A1945Z Respiratory Ventilation, 24-96 Consecutive Hours (ICD-10-PCS; 2016-06-05)
PROC: 0BH17EZ Insertion of Endotracheal Airway into Trachea, Via Natural or Artificial Opening (ICD-10-PCS; 2016-06-05)
PROC: 30233L1 Transfusion of Nonautologous Fresh Plasma into Peripheral Vein, Percutaneous Approach (ICD-10-PCS; 2016-06-05)
PROC: 02HV33Z Insertion of Infusion Device into Superior Vena Cava, Percutaneous Approach (ICD-10-PCS; 2016-06-05)
PROC: B548ZZA Ultrasonography of Superior Vena Cava, Guidance (ICD-10-PCS; 2016-06-05)
PROC: 5A12012 Performance of Cardiac Output, Single, Manual (ICD-10-PCS; 2016-06-05)
PROC: 06L34CZ Occlusion of Esophageal Vein with Extraluminal Device, Percutaneous Endoscopic Approach (ICD-10-PCS; principal; 2016-06-05 13:30)
PROC: 30233R1 Transfusion of Nonautologous Platelets into Peripheral Vein, Percutaneous Approach (ICD-10-PCS; 2016-06-06)
PROC: 30233K1 Transfusion of Nonautologous Frozen Plasma into Peripheral Vein, Percutaneous Approach (ICD-10-PCS; 2016-06-06)
DX: A41.9 Sepsis, unspecified organism (principal); J96.00 Acute respiratory failure, unspecified whether with hypoxia or hypercapnia; K76.7 Hepatorenal syndrome; N17.0 Acute kidney failure with tubular necrosis; R65.21 Severe sepsis with septic shock; K92.0 Hematemesis; J69.0 Pneumonitis due to inhalation of food and vomit; D68.9 Coagulation defect, unspecified; I85.00 Esophageal varices without bleeding; D62 Acute posthemorrhagic anemia; E43 Unspecified severe protein-calorie malnutrition; D69.6 Thrombocytopenia, unspecified; K72.90 Hepatic failure, unspecified without coma; E86.1 Hypovolemia; K31.89 Other diseases of stomach and duodenum; I44.30 Unspecified atrioventricular block; K70.30 Alcoholic cirrhosis of liver without ascites; K76.6 Portal hypertension; F10.20 Alcohol dependence, uncomplicated; K92.2 Gastrointestinal hemorrhage, unspecified; Z88.6 Allergy status to analgesic agent; Z88.8 Allergy status to other drugs, medicaments and biological substances; Z79.899 Other long term (current) drug therapy; Z68.22 Body mass index [BMI] 22.0-22.9, adult
CPT/HCPCS: 36415; 36600; 43244; 71010; 80048; 80053; 80307; 81000-TC; 82009-TC; 82140-TC; 82570-TC; 82803-TC; 82962; 83036; 83605; 83735-TC; 83880; 83935-TC; 84443-TC; 84484; 85007; 85025; 85027; 85610-TC; 85730-TC; 86803; 86886; 86900; 86901; 86920; 87040-TC; 87081; 87086; 87340; 92950; 93005; 93306; 94002; 94003; 96361; 96365; 96375; 99285; C1751; C1769; C9113; G0482; J0696; J0780; J1265; J1815; J1940; J1956; J2060; J2250; J2354; J2370; J2405; J2543; J3010; J3411; J3430; J3490; J7030; J7040; J7042; J7050; J7060; P9021; P9034; P9046; P9059